=== PATIENT | male | born 1995 | race Caucasian/White ===

== ENCOUNTER 2017-02-27 18:21 | Observation (INO) | payer OTHER, SELFPAY ==
[2017-02-27 22:07] LABS: #Eosinphils 0.2 thou/uL (0.0-0.7); #Lymphocytes 2.4 thou/uL (1.20-3.40); #Monocytes 0.9 thou/uL (0.11-0.59); #Neutrophils 9.6 thou/uL (1.40-6.50); %Basophils 0.3 % (0.0-1.0); %Eosinophils 1.2 % (0.0-10.0); %Lymphocytes 18.1 % (21.0-51.0); Hematocrit 45.1 % (42.0-52.0); Mean Platelet Volume 8.5 fL (7.4-10.4); Red Blood Cell (RBC) Count 4.95 mill/uL (4.70-6.10)
[2017-02-27 22:20] LABS: Anion Gap 15 mmol/L (10-20); BUN (Urea Nitrogen) 12 mg/dL (8.9-20.6); Calc. Creatinine Clearance 0 mL/min (70-130); Calcium 9.3 mg/dL (7.8-10.44); Carbon Dioxide 24 mmol/L (22-29); Chloride 105 mmol/L (98-107); Estimated GFR-MDRD 88
--- NOTE | 2017-02-27 22:37 | RAD ---
LEFT TIBIA AND FIBULA TWO VIEWS: 02/27/17 HISTORY: 21-year-old male with left tibia and fibula pain following an injury. There is disruption of the ank le mortise with displaced oblique distal fibular fracture and disruption of the medial collateral li gament of the ankle. There is no proximal tibial or fibular fracture. IMPRESSION: Disruption of the ankle mortise with a displaced oblique fracture of the distal fibula and disrupted medial collateral ligament complex and overall disruption of the ankle mortise. POS: [facility]
--- NOTE | 2017-02-27 22:43 | RAD ---
LEFT ANKLE ONE VIEWS: 02/27/17 HISTORY: 21-year-old male with left ankle injury following a fall with associated deformity. A single mortise view of the left ankle is performed. There is an oblique displaced fracture of the distal fibula. There is abnormal widening of the medial malleolus medial talus space with some small chip type fragments evidence for medial collateral ligament injury and disruption with disruption o f the ankle mortise. IMPRESSION: Disrupted ankle mortise with lateral malleolar displaced fracture and medial collateral ligament dis ruption with abnormal alignment of the ankle mortise. POS: [facility]
[2017-02-27] MEDS ORDERED: Ondansetron HCl/PF 4 MG/2 ML Vial IVP PRN (22:59)
[2017-02-27] MEDS ORDERED: Ondansetron ODT 8 MG TAB PO PRN (23:00)
[2017-02-27 23:06] VITALS: BMI 27.6
--- NOTE | 2017-02-27 23:49 | RAD ---
LEFT ANKLE TWO VIEWS: 02/27/17 HISTORY: 21-year-old male for post reduction evaluation of the left ankle following trauma. Two views of the right ankle demonstrates stabilization with splint material. There is improvement i n position and alignment of the tibiotalar joint as well as improvement in the alignment of the dist al fibular fracture. IMPRESSION: Improved alignment of the ankle mortise. Stabilization with splint material. POS: [facility]
[2017-02-28] MEDS ORDERED: D5 1/2 NS w/20 mEq KCL 1,000 ML IV SCH (00:01)
[2017-02-28] MEDS ORDERED: Morphine Sulfate 2 MG/ML SYRINGE IVP PRN ×2 (07:03→16:35)
[2017-02-28] MEDS ORDERED: Dextrose 50% Abboject 50 ML SYRINGE SLOW IVP PRN (07:03)
[2017-02-28] MEDS ORDERED: Ondansetron HCl/PF 4 MG/2 ML Vial IVP PRN (07:03)
[2017-02-28] MEDS ORDERED: Dextrose 5% in Water 1,000 ML IV PRN (07:03)
[2017-02-28] MEDS ORDERED: Ondansetron ODT 4 MG TAB PO PRN (07:03)
--- NOTE | 2017-02-28 07:41 | HP ---
DATE OF ADMISSION: 02/27/2017 REQUESTING PHYSICIAN: Dr. Hancock ATTENDING SURGEON: Dr. Pool Taylor CONSULTATIONS: Orthopedics, Dr. Rubio. HISTORY OF PRESENT ILLNESS: The patient is a 21-year-old man who was reportedly walking i n the rain on a metal surface when he slipped. His left lower extremity planted and the rest of his body continued. The patient had immediate left ankle pain, was barely able to ambulate, was flor t to the Emergency Department, evaluated, examined and noted to have a left distal fibular fracture with a widened mortise. CURRENT MEDICATIONS: None. ALLERGIES: None. PAST SURGICAL HISTORY: None. FAMILY MEDICAL HISTORY: Hypertension. 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 He denies tobacco use, occasional ETOH an d no drug use. REVIEW OF SYSTEMS: Ten point review of systems negative unless otherwise stated. PHYSICAL EXAMINATION: VITAL SIGNS: Temperature is 98 degrees, pulse 92, blood pressure 136/89, respirations 18, oxygen sa turation 99% on room air. GENERAL: The patient is resting comfortably in bed. He is alert and oriented x3. [place] coma sca le was 15. HEENT: Head is normocephalic, atraumatic. Eyes: Extraocular motion intact. PERRLA bilaterally. Ears are atraumatic without discharge. Nose is atraumatic without discharge. Oropharynx is clear. NECK: Nontender. Trachea is midline. No JVD. CHEST: Clear to auscultation with good inspiratory and expiratory effort. HEART: Regular rate and rhythm. ABDOMEN: Soft, flat, nontender. Pelvis is stable. EXTREMITIES: The bilateral upper extremities and right lower extremities are neurovascularly intact , show full active range of motion. The left lower extremity is immobilized in a posterior splint. The patient has sensation distally and is able to move his toes. BACK: Atraumatic and nontender. LABORATORY FINDINGS: White blood cell count 13, hemoglobin 15.1, hematocrit 45, platelets 238. Sod ium 140, potassium 4.0, chloride 105, CO2 24, BUN 12, creatinine 1.06, glucose 96. Radiographs of the left ankle showed disrupted ankle mortise, lateral malleolar displaced fracture a nd medial collateral ligament disruption with abnormal alignment of the ankle mortise. Two views of the left tibia and fibula again showed the same, a post-reduction ankle film after splinting shows improved alignment. ASSESSMENT AND PLAN: 1. Status post ground level fall. 2. Left distal fibular fracture with widened mortise. 3. Pain secondary to trauma. PLAN: The plan will be to admit the patient to the surgical floor, await consultation by Orthopedic s with likeliness of surgical repair. The patient will have pain control, pulmonary toilet, gastrit is and mechanical thrombosis prophylaxis. The patient will remain NPO.
[2017-02-28] MEDS: Sodium Chloride 0.9% 1,000 ML IV SCH ×3 (08:08→19:56)
[2017-02-28] MEDS ORDERED: FLU VACC QS2017-18 36 mo. & older 0.5 ML SYRINGE IM ONE (09:00)
--- NOTE | 2017-02-28 13:12 | CON ---
DATE OF CONSULTATION: 02/28/2017 REQUESTING PHYSICIAN: Dr. Shahid Dent. CONSULTING PHYSICIAN: Dr. Gold Rubio. REASON FOR CONSULTATION: Left distal fibula fracture with mild tibiotalar subluxation. BRIEF CLINICAL HISTORY: Stan is a 21-year-old white male who was walking on uneven surface early y day evening and fell awkwardly resulting in a distal fibular fracture with subluxation of the t ibiotalar joint. He was admitted by Trauma Team and our service was consulted for definitive orthop edic management of this problem. PAST MEDICAL HISTORY: Negative. PAST SURGICAL HISTORY: Negative. MEDICATIONS: None. ALLERGIES: No known drug allergies. Denies any contact allergies. SOCIAL HISTORY: Single male. 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 He denies ethanol, tobacc o or illicit drug abuse. PHYSICAL EXAMINATION: Visual inspection of the left lower extremity demonstrates him to be in a pos terior splint. He has tenderness with palpation along the lateral aspect of the ankle corroborating evidence on radiograph. He is neurovascularly intact with good digital excursion. There are no br eaks in the skin in or around the fracture site. Range of motion of the knee is full and unlimited. There is no provocative discomfort. IMAGING STUDIES: Three views of the left ankle demonstrates a Smith B distal fibular fracture with subluxation of the tibiotalar joint consistent with deltoid ligament sprain. IMPRESSION: Closed left distal fibular fracture with tibiotalar subluxation resulting in deltoid li gament sprain. PLAN: 1. The risks, benefits, options, alternatives, and rationale for proceeding with open reduction and internal fixation of the left distal fibula has been explained in great detail to the patient. All questions are answered. No guarantee of outcome is stated or implied. 2. Please see orders.
[2017-02-28] MEDS ORDERED: Midazolam HCl 2 mg/2 ml Vial ONE (13:40)
[2017-02-28] MEDS ORDERED: Fentanyl 100 MCG/2 ML VIAL ONE ×2 (13:40→15:37)
[2017-02-28] MEDS ORDERED: Dexamethasone 20 MG/5 ML VIAL ONE (13:56)
[2017-02-28] MEDS ORDERED: Ondansetron HCl/PF 4 MG/2 ML Vial ONE (13:56)
[2017-02-28] MEDS ORDERED: Lidocaine 1% PF 5 ML VIAL ONE (13:56)
[2017-02-28] MEDS ORDERED: Propofol 200 MG/20 ML VIAL ONE (13:56)
[2017-02-28] MEDS ORDERED: Promethazine HCl 25 MG/ML VIAL SLOW IVP PRN (14:20)
[2017-02-28] MEDS ORDERED: Meperidine HCl/PF 25 MG/ML VIAL SLOW IVP PRN (14:20)
[2017-02-28] MEDS ORDERED: Morphine Sulfate 2 MG/ML SYRINGE SLOW IVP PRN (14:20)
[2017-02-28] MEDS ORDERED: HYDROmorphone 2 MG/ML VIAL SLOW IVP PRN (14:20)
[2017-02-28] MEDS ORDERED: traMADol HCl 50 MG TAB PO PRN (15:52)
[2017-02-28] MEDS: traMADol HCl 50 MG TAB PO PRN (16:55)
[2017-02-28] MEDS: Ibuprofen 800 MG TAB PO SCH (16:55)
--- NOTE | 2017-02-28 17:19 | RAD ---
LEFT ANKLE INTRAOPERATIVE FLUOROSCOPY TWO VIEWS: 02/28/17 HISTORY: Ankle fracture. FINDINGS: Intraoperative fluoroscopy was provided for internal fixation as performed by Dr. Rubio. Two spot fluoroscopic images show compression plate and multiple screws to transfix the distal fibula, in an atomic alignment. FLUORO TIME = 4 seconds. POS: [facility]
[2017-02-28] MEDS: Acetaminophen 500 MG TAB PO SCH (17:33)
[2017-03-01] MEDS: Ibuprofen 800 MG TAB PO SCH ×2 (00:01→08:20)
[2017-03-01] MEDS: Acetaminophen 500 MG TAB PO SCH ×2 (00:01→06:05)
[2017-03-01] MEDS: traMADol HCl 50 MG TAB PO PRN ×2 (00:01→06:05)
[2017-03-01] MEDS: Sodium Chloride 0.9% 1,000 ML IV SCH (04:10)
[2017-03-01 11:37] VITALS: BP 115/67; TEMP 97.9
--- NOTE | 2017-03-01 21:23 | DIS ---
DATE OF ADMISSION: 02/27/2017 DATE OF DISCHARGE: 03/01/2017 ADMISSION DIAGNOSES: 1. Status post ground-level fall. 2. Left distal fibula fracture with wide mortise. 3. Pain secondary to trauma. CONSULTATIONS: Orthopedics, Dr. Rubio. PROCEDURES: Open reduction and internal fixation of left distal fibular fracture. HOSPITAL SUMMARY: The patient is a 21-year-old man who was reportedly walking on a metal surface when he slipped and planted his left lower extremity while the rest of his body continued. The patient immediately had pain to his left lower extremity, specifically his ankle and he was brou ght to the Emergency Department, evaluated and examined and found to have the above injuries. Clemente gates will be admitted and undergo the above procedure. He tolerated this well. This morning, he work ed with physical and occupational therapy and was cleared on crutches. His pain was controlled. He was tolerating a diet. His bowel function had returned. The patient will be discharged home with followup with Orthopedics in 10-14 days or sooner as needed.
--- NOTE | 2017-03-02 14:43 | OP ---
DATE OF SURGERY: 02/28/2017 PREOPERATIVE DIAGNOSIS: Lateral malleolus fracture, left. POSTOPERATIVE DIAGNOSIS: Lateral malleolus fracture, left. SURGICAL PROCEDURE: Open reduction and internal fixation of left lateral malleolus. ANESTHESIA: General. SURGEON: Gold Rubio M.D. MECHANICAL ARTIST: Todd Ledesma PA-C. IMPLANTS: 6 hole one-third tubular plate, Synthes. TOURNIQUET TIME: 29 minutes at 300 mmHg. COMPLICATIONS: None. DRAINS: None. SPECIMEN: None. OUTCOME: Satisfactory. INDICATIONS: Patient is a 21-year-old gentleman status post twisting injury to left ankle, sustaini ng fracture dislocation of the ankle. A closed reduction was performed in the emergency room; howev er, patient does have residual lateral displacement of the talus from underneath the tibia and as valentine ch now scheduled for open reduction and internal fixation of the lateral malleolus. Informed consen t has been obtained. I believe all questions answered. DESCRIPTION OF THE PROCEDURE: After the induction of general anesthesia, the patient was positioned supine on the OR table, then a sterile prep and drape was performed of the left lower extremity. N ext, the limb was exsanguinated with Esmarch bandage, tourniquet inflated to 300 mmHg. A lateral in cision was made centered over the distal fibula after skin was sharply incised. Dissection was clark ied down bluntly to the underlying lateral malleolus. Soft tissue was resected and removed from the fracture gap and the fracture was reduced and held in place with bone tenaculum. An anterior to po sterior interfragmentary screw was placed. This was then followed by contouring of a 6-hole 1/3 tub ular plate to the lateral cortex of the distal fibula. This was held in place with 3 cortical screw s proximally and two core cancellous screws distally. AP lateral C-arm images were then obtained th at showed anatomic alignment of the ankle with religious of normal anatomy with talus well central ized down to the distal tibia. The wound was then thoroughly irrigated with normal saline with bulb syringe and then closed in layers with 0 Vicryl deep, 2-0 Vicryl followed by angel for the skin. Xeroform gauze, Webril, an Dawson wrap dressing was then applied to the ankle and the patient was hickman sferred to recovery room in stable condition. Tourniquet was let down at the completion of dressing . There were no complications. He tolerated the procedure well.
== END 2017-03-01 12:57 | disposition home or self-care (01) ==
LOC: ERS 18:21 → SURG A 22:43 → INTOOBSV 22:43
PROVIDERS: ADMIT Specialist; ATTEND Specialist
PROC: 0QSK04Z Reposition Left Fibula with Internal Fixation Device, Open Approach (ICD-10-PCS; principal; 2017-02-28)
DX: S82.62XA Displaced fracture of lateral malleolus of left fibula, initial encounter for closed fracture (principal); G89.11 Acute pain due to trauma; S93.422A Sprain of deltoid ligament of left ankle, initial encounter; W01.0XXA Fall on same level from slipping, tripping and stumbling without subsequent striking against object, initial encounter; Y93.01 Activity, walking, marching and hiking; Y99.8 Other external cause status
CPT/HCPCS: 27788; 36415; 76001; 80048; 85025; 96361; 96374; 96376; C1713; G0378; G8978-GP-CI; G8979-GP-CI; G8980-GP-CI; G8987-GO-CK; G8988-GO-CK; G8989-GO-CK; J1100; J2001; J2250; J2270; J2405; J2704; J3010